=== PATIENT | female | born 1970 | race American Indian/Alaskan Native ===

== ENCOUNTER 2020-11-20 22:18 | Inpatient (IN) | payer MEDICARE ==
[~2020-11-20 22:18] MED LIST: QUEtiapine 200 MG TAB PO SCH
[2020-11-20] MEDS ORDERED: ZIPRASIDONE MESYLATE 20 MG VIAL IM ONE (22:26)
[2020-11-20] MEDS ORDERED: WATER FOR INJ Sterile (PF) 10 ML ONE (22:27)
[2020-11-20] MEDS ORDERED: HALOPERIDOL LACTATE 5 MG/1 ML INJ IM PRN (23:00)
[2020-11-20] MEDS ORDERED: LORazepam 2 MG/ML VIAL IM PRN (23:00)
[2020-11-21 00:05] LABS: Basophils # (Auto) 0.1 K/mm3 (0.0-0.1); Basophils % (Auto) 0.7 % (0.0-1.8); Eosinophils # (Auto) 0.3 K/mm3 (0.0-0.4); Eosinophils % (Auto) 2.9 % (0.0-4.3); Hematocrit 44.7 % (30.3-42.9); Lymphocytes # (Auto) 1.8 K/mm3 (1.2-5.4); Lymphocytes % (Auto) 17.4 % (13.4-35.0); Mean Corpuscular HGB Conc 34 % (30-34); Mean Corpuscular Volume 92 fl (79-97); Monocytes # (Auto) 1.1 K/mm3 (0.0-0.8); Monocytes % (Auto) 10.6 % (0.0-7.3); Platelet Count 311 K/mm3 (140-440); Red Blood Count 4.88 M/mm3 (3.65-5.03); Red Cell Distribution Width 13.2 % (13.2-15.2)
[2020-11-21 04:14] LABS: Alanine Aminotransferase 59 units/L (7-56); Albumin 4.7 g/dL (3.9-5); BUN/Creatinine Ratio 19; Blood Urea Nitrogen 13 mg/dL (7-17); Calcium 10.5 mg/dL (8.4-10.2); Chol/HDL Ratio 1.85 %; HDL Cholesterol 74 mg/dL (40-59); Hemolysis Index 10; LDL Cholesterol,Direct 59 mg/dL (50-130)
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
[2020-11-21] MEDS: DIVALPROEX DR 125 MG TAB PO SCH ×2 (10:48→21:07)
[2020-11-21] MEDS: QUEtiapine 100 MG TAB PO SCH ×2 (10:48→21:07)
[2020-11-21] MEDS: clonazePAM 0.5 MG TAB PO SCH ×2 (10:48→21:07)
[2020-11-21] MEDS ORDERED: MAGNESIUM HYDROXIDE (MOM) ORAL LIQD UDC PO PRN (15:13)
[2020-11-21] MEDS ORDERED: NITROFURANTOIN MONOHYD/M-CRYST 100 MG CAP PO SCH (16:00)
[2020-11-21] MEDS: traZODone 50 MG TAB PO SCH (21:07)
[2020-11-21] MEDS: NITROFURANTOIN MONOHYD/M-CRYST 100 MG CAP PO SCH (23:13)
--- NOTE | 2020-11-22 09:16 | Progress Note ---
Subjective Date of service: 11/22/20 Subjective Comment: per Nurse Note: Received pa in hallway yelling loudly knocking and banging on the nurses station window with multiple complains. Staff redirect pt, she is calm at this time, sitting in the dayroom eating breakfast. Will continue to monitor. Patient seen in the common room pacing and being talkative. Patient reports that she is not doing well. She states having a history of Schizophrenia which she states that she stopped taking medications for 25 years. She reports managing her symptoms with "weed." Patient presents with intrusive behaviors, hyperverbal and sometimes tearful. She denies any current suicidal/ homicidal thoughts and denies hallucinations. REVIEW OF SYSTEMS Constitutional: Negative for weight loss ENT: Negative for stridor Respiratory: Negative for cough or hemoptysis All other systems reviewed and are negative MENTAL STATUS EXAMINATION General Appearance and Behavior: Age appropriate, dressed appropriately, good eye contact Cooperation: Participating/engaged, but intrusive Psychomotor Behavior: Psychomotor normal Mood: tearful Affect and affective range: irritable, labile, tearful Thought Process: illogical Thought Content: Speech: hyperverbal, flight of ideas, increased tone and pace Intellectual Functioning: Average Suicidal Ideation: Denies SI Homicidal Ideation: Denies HI Hallucinations: Denies Delusions: Yes Impulse Control: Impaired Insight and Judgment: Limited insight and judgment Memory: Normal Attention: Normal Orientation: Alert, oriented Assessment and Plan (1)Schizophrenia Current Visit: Yes Status: Acute Treatment Plan Patient admitted for inpatient psychiatric evaluation, medication adjustment and close monitoring The patient's behavior, mood, sleep and appetite will be closely monitored. Patient enrolled in individual and group therapeutic sessions and encouraged to attend. Patient provided with a safe and structured environment. Patient's physical health needs will be addressed by the Hospitalist. Hospitalist Consulted Labs including CBC, CMP, Lipid profile and Hemoglobin A1C levels ordered for baseline reference Social Assessment will be completed and the Assistant will work with patient and family to ensure a suitable and safe disposition Medication adjustment will be made as clinically indicated Continue- Seroquel 100mg po BID Continue- Klonopin 0.25mg po BID x 3 days Continue - Depakote DR 125mg po BID Continue - Trazodone 50mg po qhs Usual Wellness Jain/Preservation: - Continue- Trazodone 50 mg po QHS & 50 mg po QHS PRN between 10 PM & 2 AM for insomnia - Continue -Melatonin 5 mg po QHS to promote circadian rhythm - Continue - [place]-3 for brain health, reduce impulsivity, and as adjunctive treatment for mood disorder, continue upon discharge given overall benefits. - Continue - B1 prophylaxis with 200 mg po for 5 days The patient agreed on the treatment plan, understood the risk, benefit, alternative treatment, potential consequence of no treatment, and gave informed consent. Initial Certification Inpatient psych services: I certify that the inpatient psychiatric services are required for treatment that could reasonably be expected to improve the patient's condition. Estimated days: 7 Legal Status: Voluntary Patient Problems: Current Active Problems Suicidal ideations (Acute) Reaction to Hospitalization: Accepting Medications and Allergies Allergies Allergy/AdvReac Type Severity Reaction Status Date / Time No Known Allergies Allergy Verified 11/21/20 04:09 Home Medications Medication Instructions Recorded Confirmed Last Taken Type Amlodipine Besylate [Norvasc] 5 mg PO DAILY 11/20/20 11/21/20 Unknown History Nitrofurantoin [place]/M-Cryst 100 mg PO Q8HR 11/20/20 11/21/20 Unknown History [Macrobid CAP] Active Meds: Active Medications Clonazepam (Clonazepam 0.5 Mg Tab) 0.25 mg PO BID [facility] Stop: 11/24/20 06:00 Last Admin: 11/21/20 21:07 Dose: 0.25 mg Documented by: Divalproex Sodium (Divalproex Dr 125 Mg Tab) 125 mg PO BID [facility] Last Admin: 11/21/20 21:07 Dose: 125 mg Documented by: Haloperidol Lactate (Haloperidol Lactate 5 Mg/1 Ml Inj) 5 mg IM Q6H PRN PRN Reason: Agitation Last Admin: 11/21/20 13:54 Dose: 5 mg Documented by: Lorazepam (Lorazepam 2 Mg/Ml Vial) 2 mg IM Q6H PRN PRN Reason: Agitation Last Admin: 11/21/20 13:54 Dose: 2 mg Documented by: Magnesium Hydroxide (Magnesium Hydroxide (Mom) Oral Liqd Udc) 30 ml PO QDAY PRN PRN Reason: Constipation Nitrofurantoin Macrocrystals (Nitrofurantoin Monohyd/M-Cryst 100 Mg Cap) 100 mg PO 1000,2200 [facility] Stop: 11/28/20 10:01 Last Admin: 11/21/20 23:13 Dose: 100 mg Documented by: Quetiapine Fumarate (Quetiapine 100 Mg Tab) 100 mg PO BID [facility] Last Admin: 11/21/20 21:07 Dose: 100 mg Documented by: Trazodone HCl (Trazodone 50 Mg Tab) 50 mg PO QHS [facility] Last Admin: 11/21/20 21:07 Dose: 50 mg Documented by: Results - Results Labs/Vitals: Laboratory Last Values WBC 10.6 K/mm3 (4.5-11.0) 11/20/20 23:36 RBC 4.88 M/mm3 (3.65-5.03) 11/20/20 23:36 Hgb 15.0 gm/dl (10.1-14.3) H 11/20/20 23:36 Hct 44.7 % (30.3-42.9) H 11/20/20 23:36 MCV 92 fl (79-97) 11/20/20 23:36 MCH 31 pg (28-32) 11/20/20 23:36 MCHC 34 % (30-34) 11/20/20 23:36 RDW 13.2 % (13.2-15.2) 11/20/20 23:36 Plt Count 311 K/mm3 (140-440) 11/20/20 23:36 Lymph % (Auto) 17.4 % (13.4-35.0) 11/20/20 23:36 [place] % (Auto) 10.6 % (0.0-7.3) H 11/20/20 23:36 Eos % (Auto) 2.9 % (0.0-4.3) 11/20/20 23:36 Baso % (Auto) 0.7 % (0.0-1.8) 11/20/20 23:36 Lymph # (Auto) 1.8 K/mm3 (1.2-5.4) 11/20/20 23:36 [place] # (Auto) 1.1 K/mm3 (0.0-0.8) H 11/20/20 23:36 Eos # (Auto) 0.3 K/mm3 (0.0-0.4) 11/20/20 23:36 Baso # (Auto) 0.1 K/mm3 (0.0-0.1) 11/20/20 23:36 Seg Neutrophils % 68.4 % (40.0-70.0) 11/20/20 23:36 Seg Neutrophils # 7.2 K/mm3 (1.8-7.7) 11/20/20 23:36 Sodium 141 mmol/L (137-145) 11/20/20 23:36 Potassium 4.0 mmol/L (3.6-5.0) 11/20/20 23:36 Chloride 101.2 mmol/L (98-107) 11/20/20 23:36 Carbon Dioxide 25 mmol/L (22-30) 11/20/20 23:36 Anion Gap 19 mmol/L 11/20/20 23:36 BUN 13 mg/dL (7-17) 11/20/20 23:36 Creatinine 0.7 mg/dL (0.6-1.2) 11/20/20 23:36 Estimated GFR > 60 ml/min 11/20/20 23:36 BUN/Creatinine Ratio 19 % 11/20/20 23:36 Glucose 99 mg/dL (65-100) 11/20/20 23:36 POC Glucose 102 mg/dL (70-105) 11/20/20 22:58 Hemoglobin A1c 5.9 % (4-6) 11/20/20 23:36 Calcium 10.5 mg/dL (8.4-10.2) H 11/20/20 23:36 Total Bilirubin 0.20 mg/dL (0.1-1.2) 11/20/20 23:36 AST 46 units/L (5-40) H 11/20/20 23:36 ALT 59 units/L (7-56) H 11/20/20 23:36 Alkaline Phosphatase 152 units/L (35-129) H 11/20/20 23:36 Total Protein 7.0 g/dL (6.3-8.2) 11/20/20 23:36 Albumin 4.7 g/dL (3.9-5) 11/20/20 23:36 Albumin/Globulin Ratio 2.0 % 11/20/20 23:36 Triglycerides 71 mg/dL (2-149) 11/20/20 23:36 Cholesterol 137 mg/dL (50-199) 11/20/20 23:36 LDL Cholesterol Direct 59 mg/dL (50-130) 11/20/20 23:36 HDL Cholesterol 74 mg/dL (40-59) H 11/20/20 23:36 Cholesterol/HDL Ratio 1.85 % 11/20/20 23:36 Last Vital Signs Temp 98.5 F 11/21/20 19:57 Pulse 95 H 11/21/20 19:57 Resp 18 11/21/20 19:57 BP 130/68 11/21/20 19:57 Pulse Ox 96 11/21/20 19:57
[2020-11-22] MEDS: NITROFURANTOIN MONOHYD/M-CRYST 100 MG CAP PO SCH ×2 (09:32→22:01)
[2020-11-22] MEDS: clonazePAM 0.5 MG TAB PO SCH ×2 (09:32→21:40)
[2020-11-22] MEDS: DIVALPROEX DR 125 MG TAB PO SCH ×2 (09:32→21:40)
[2020-11-22] MEDS: QUEtiapine 100 MG TAB PO SCH ×2 (09:33→21:40)
--- NOTE | 2020-11-22 14:27 | Consultation ---
History of Present Illness - Reason for Consult Consult date: 11/22/20 Medical management Requesting physician: ALLI ROSE - History of Present Illness 50-year-old -Citizen Of [place] female with past medical history significant for schizophrenia, hypertension was admitted to [facility] for depression. Patient stated she was not taking her lithium for years, she has been smoking marijuana but did not help her much. Patient feels depressed and was admitted to [facility]. Patient states she had dysuria and frequency but no other complaints. Patient is complaining she has hemorrhoid. REVIEW OF SYSTEMS: GENERAL: no weight change, no fatigue, no fever HEAD: no head ache EYES: no blurry vision, no acute visual loss EARS: no hearing loss, no discharge, no earache NOSE: no stuffiness, no sneezing, no discharge MOUTH, THROAT AND NECK: no bleeding gums, no sore throat, no swollen neck CARDIAC: no palpitations, no dyspnea on exertion, no orthopnea, no PND, no edema, no chest pain RESPIRATORY: no shortness of breath, no wheeze, no cough, no sputum, no he moptysis, no asthma GI: no decreased appetite, no nausea, no vomiting, no dysphagia, no diarrhea, no constipation, no abdominal pain URINARY: No urgency, hematuria, dysuria or frequency. MUSCULOSKELETAL: no muscle weakness, no pain, no joint stiffness NEUROLOGIC: no loss of sensation/numbness, no tingling, no tremors, no weakness/paralysis HEMATOLOGIC: no anemia, no easy bruising SKIN: no rashes ENDOCRINE: no heat/cold intolerance, no polyuria, no polydipsia, no thyroid problems, no diabetes PSYCHIATRIC: no anxiety, no suicidal ideations Past History Past Medical History: hypertension, other (Schizophrenia) Past Surgical History: Other (tubal ligation) Social history: smoking (Quit 2 weeks ago), alcohol abuse (Quit 2 weeks ago). denies: prescription drug abuse Family history: other (No family history of schizophrenia) Medications and Allergies Allergies Allergy/AdvReac Type Severity Reaction Status Date / Time No Known Allergies Allergy Verified 11/21/20 04:09 Home Medications Medication Instructions Recorded Confirmed Last Taken Type Amlodipine Besylate [Norvasc] 5 mg PO DAILY 11/20/20 11/21/20 Unknown History Nitrofurantoin [place]/M-Cryst 100 mg PO Q8HR 11/20/20 11/21/20 Unknown History [Macrobid CAP] Active Meds: Active Medications Clonazepam (Clonazepam 0.5 Mg Tab) 0.25 mg PO BID [facility] Stop: 11/24/20 06:00 Last Admin: 11/22/20 09:32 Dose: 0.25 mg Documented by: Divalproex Sodium (Divalproex Dr 125 Mg Tab) 125 mg PO BID [facility] Last Admin: 11/22/20 09:32 Dose: 125 mg Documented by: Haloperidol Lactate (Haloperidol Lactate 5 Mg/1 Ml Inj) 5 mg IM Q6H PRN PRN Reason: Agitation Last Admin: 11/21/20 13:54 Dose: 5 mg Documented by: Lorazepam (Lorazepam 2 Mg/Ml Vial) 2 mg IM Q6H PRN PRN Reason: Agitation Last Admin: 11/21/20 13:54 Dose: 2 mg Documented by: Magnesium Hydroxide (Magnesium Hydroxide (Mom) Oral Liqd Udc) 30 ml PO QDAY PRN PRN Reason: Constipation Nitrofurantoin Macrocrystals (Nitrofurantoin Monohyd/M-Cryst 100 Mg Cap) 100 mg PO 1000,2200 [facility] Stop: 11/28/20 10:01 Last Admin: 11/22/20 09:32 Dose: 100 mg Documented by: Quetiapine Fumarate (Quetiapine 100 Mg Tab) 100 mg PO BID [facility] Last Admin: 11/22/20 09:33 Dose: 100 mg Documented by: Trazodone HCl (Trazodone 50 Mg Tab) 50 mg PO QHS [facility] Last Admin: 11/21/20 21:07 Dose: 50 mg Documented by: Exam - Physical Exam Narrative exam: Not in cardiopulmonary distress. The patient appeared well nourished and normally developed. Vital signs as documented. Head exam is unremarkable. No scleral icterus . Neck is without jugular venous distension, thyromegaly, or carotid bruits. Lungs are clear to auscultation. Cardiac exam reveals regular rate and Rhythm. Abdominal exam reveals normal bowel sounds, nontender, no organomegaly. Extremities are nonedematous and both femoral and pedal pulses are normal. 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 No focal weakness. - Constitutional Vitals: Temp Pulse Resp BP Pulse Ox 98.6 F 87 18 122/84 99 11/22/20 08:04 11/22/20 08:04 11/22/20 08:04 11/22/20 08:04 11/22/20 08:04 Results - Labs CBC & Chem 7: 11/20/20 23:36 11/20/20 23:36 Assessment and Plan Schizophrenia, major depression -Management as per [facility] psych UTI -Patient has symptoms of UTI -UA ordered -Agree with nitrofurantoin Hypertension -Patient's blood pressure is within normal limit without any medication Thank you for the consult. Please feel free to call me for any questions.
[2020-11-22] MEDS: HYDROCORTISONE 2.5% RECT CREAM 28.35 GM PR PRN ×2 (15:55→21:41)
[2020-11-22] MEDS: traZODone 50 MG TAB PO SCH (21:40)
[2020-11-23] MEDS: QUEtiapine 100 MG TAB PO SCH ×2 (09:21→21:30)
[2020-11-23] MEDS: clonazePAM 0.5 MG TAB PO SCH ×2 (09:21→21:30)
[2020-11-23] MEDS: NITROFURANTOIN MONOHYD/M-CRYST 100 MG CAP PO SCH (09:21)
[2020-11-23] MEDS: DIVALPROEX DR 125 MG TAB PO SCH (09:21)
--- NOTE | 2020-11-23 09:22 | Progress Note ---
Subjective Date of service: 11/23/20 Subjective Comment: Per Nurse Note: pt was restless most of the night, constantly coming to the nursing demanding for one thing or the other, slept for approximately 3hrs, no distress noted, will continue to monitor for safety. Patient was seen today pacing the hallways. Patient reports sleeping good but was a little anxious. Patient continues to present with intrusive behaviors and intermittent loudness and irritability. She reports daughter visiting yesterday which she states was "peaceful." She denies any current suicidal/homicidal ideation and denies AVHs. REVIEW OF SYSTEMS Constitutional: Negative for weight loss ENT: Negative for stridor Respiratory: Negative for cough or hemoptysis All other systems reviewed and are negative MENTAL STATUS EXAMINATION General Appearance and Behavior: Age appropriate, dressed appropriately, good eye contact Cooperation: Participating/engaged, but intrusive Psychomotor Behavior: Psychomotor normal Mood: tearful Affect and affective range: irritable, labile, tearful Thought Process: illogical Thought Content: Speech: hyperverbal, flight of ideas, increased tone and pace Intellectual Functioning: Average Suicidal Ideation: Denies SI Homicidal Ideation: Denies HI Hallucinations: Denies Delusions: Yes Impulse Control: Impaired Insight and Judgment: Limited insight and judgment Memory: Normal Attention: Normal Orientation: Alert, oriented Assessment and Plan (1)Schizophrenia Current Visit: Yes Status: Acute Treatment Plan Patient admitted for inpatient psychiatric evaluation, medication adjustment and close monitoring The patient's behavior, mood, sleep and appetite will be closely monitored. Patient enrolled in individual and group therapeutic sessions and encouraged to attend. Patient provided with a safe and structured environment. Patient's physical health needs will be addressed by the Hospitalist. Hospitalist Consulted Labs including CBC, CMP, Lipid profile and Hemoglobin A1C levels ordered for baseline reference Social Assessment will be completed and the Home Coordinator will work with patient and family to ensure a suitable and safe disposition Medication adjustment will be made as clinically indicated Continue- Seroquel 100mg po BID Continue- Klonopin 0.25mg po BID x 3 days Increase - Depakote DR 250mg po BID Continue - Trazodone 50mg po qhs Usual Wellness Mormonism/Preservation: - Continue- Trazodone 50 mg po QHS & 50 mg po QHS PRN between 10 PM & 2 AM for insomnia - Continue -Melatonin 5 mg po QHS to promote circadian rhythm - Continue - [place]-3 for brain health, reduce impulsivity, and as adjunctive treatment for mood disorder, continue upon discharge given overall benefits. - Continue - B1 prophylaxis with 200 mg po for 5 days The patient agreed on the treatment plan, understood the risk, benefit, alternative treatment, potential consequence of no treatment, and gave informed consent. Initial Certification Inpatient psych services: I certify that the inpatient psychiatric services are required for treatment that could reasonably be expected to improve the patient's condition. Estimated days: 4 Legal Status: Voluntary Patient Problems: Current Active Problems Suicidal ideations (Acute) Reaction to Hospitalization: Accepting Medications and Allergies Allergies Allergy/AdvReac Type Severity Reaction Status Date / Time No Known Allergies Allergy Verified 11/21/20 04:09 Home Medications Medication Instructions Recorded Confirmed Last Taken Type Amlodipine Besylate [Norvasc] 5 mg PO DAILY 11/20/20 11/21/20 Unknown History Nitrofurantoin [place]/M-Cryst 100 mg PO Q8HR 11/20/20 11/21/20 Unknown History [Macrobid CAP] [place] Carbonate 300 mg PO DAILY 11/22/20 11/22/20 Unknown History [place] Carbonate 600 mg PO QHS 11/22/20 11/22/20 Unknown History QUEtiapine [SEROquel] 200 mg PO DAILY 11/22/20 11/22/20 Unknown History Quetiapine Fumarate [SEROquel] 400 mg PO BID 11/22/20 11/22/20 Unknown History Active Meds: Active Medications Clonazepam (Clonazepam 0.5 Mg Tab) 0.25 mg PO BID [facility] Stop: 11/24/20 06:00 Last Admin: 11/22/20 21:40 Dose: 0.25 mg Documented by: Divalproex Sodium (Divalproex Dr 125 Mg Tab) 125 mg PO BID [facility] Last Admin: 11/22/20 21:40 Dose: 125 mg Documented by: Haloperidol Lactate (Haloperidol Lactate 5 Mg/1 Ml Inj) 5 mg IM Q6H PRN PRN Reason: Agitation Last Admin: 11/21/20 13:54 Dose: 5 mg Documented by: Hydrocortisone Acetate (Hydrocortisone 2.5% Rect Cream 28.35 Gm) 1 applic [place] Q8H PRN PRN Reason: Hemorrhoids Last Admin: 11/22/20 21:41 Dose: 1 applic Documented by: Lorazepam (Lorazepam 2 Mg/Ml Vial) 2 mg IM Q6H PRN PRN Reason: Agitation Last Admin: 11/21/20 13:54 Dose: 2 mg Documented by: Magnesium Hydroxide (Magnesium Hydroxide (Mom) Oral Liqd Udc) 30 ml PO QDAY PRN PRN Reason: Constipation Nitrofurantoin Macrocrystals (Nitrofurantoin Monohyd/M-Cryst 100 Mg Cap) 100 mg PO 1000,2200 [facility] Stop: 11/28/20 10:01 Last Admin: 11/22/20 22:01 Dose: 100 mg Documented by: Quetiapine Fumarate (Quetiapine 100 Mg Tab) 100 mg PO BID [facility] Last Admin: 11/22/20 21:40 Dose: 100 mg Documented by: Trazodone HCl (Trazodone 50 Mg Tab) 50 mg PO QHS [facility] Last Admin: 11/22/20 21:40 Dose: 50 mg Documented by: Results - Results Labs/Vitals: Laboratory Last Values WBC 10.6 K/mm3 (4.5-11.0) 11/20/20 23:36 RBC 4.88 M/mm3 (3.65-5.03) 11/20/20 23:36 Hgb 15.0 gm/dl (10.1-14.3) H 11/20/20 23:36 Hct 44.7 % (30.3-42.9) H 11/20/20 23:36 MCV 92 fl (79-97) 11/20/20 23:36 MCH 31 pg (28-32) 11/20/20 23:36 MCHC 34 % (30-34) 11/20/20 23:36 RDW 13.2 % (13.2-15.2) 11/20/20 23:36 Plt Count 311 K/mm3 (140-440) 11/20/20 23:36 Lymph % (Auto) 17.4 % (13.4-35.0) 11/20/20 23:36 [place] % (Auto) 10.6 % (0.0-7.3) H 11/20/20 23:36 Eos % (Auto) 2.9 % (0.0-4.3) 11/20/20 23:36 Baso % (Auto) 0.7 % (0.0-1.8) 11/20/20 23:36 Lymph # (Auto) 1.8 K/mm3 (1.2-5.4) 11/20/20 23:36 [place] # (Auto) 1.1 K/mm3 (0.0-0.8) H 11/20/20 23:36 Eos # (Auto) 0.3 K/mm3 (0.0-0.4) 11/20/20 23:36 Baso # (Auto) 0.1 K/mm3 (0.0-0.1) 11/20/20 23:36 Seg Neutrophils % 68.4 % (40.0-70.0) 11/20/20 23:36 Seg Neutrophils # 7.2 K/mm3 (1.8-7.7) 11/20/20 23:36 Sodium 141 mmol/L (137-145) 11/20/20 23:36 Potassium 4.0 mmol/L (3.6-5.0) 11/20/20 23:36 Chloride 101.2 mmol/L (98-107) 11/20/20 23:36 Carbon Dioxide 25 mmol/L (22-30) 11/20/20 23:36 Anion Gap 19 mmol/L 11/20/20 23:36 BUN 13 mg/dL (7-17) 11/20/20 23:36 Creatinine 0.7 mg/dL (0.6-1.2) 11/20/20 23:36 Estimated GFR > 60 ml/min 11/20/20 23:36 BUN/Creatinine Ratio 19 % 11/20/20 23:36 Glucose 99 mg/dL (65-100) 11/20/20 23:36 POC Glucose 102 mg/dL (70-105) 11/20/20 22:58 Hemoglobin A1c 5.9 % (4-6) 11/20/20 23:36 Calcium 10.5 mg/dL (8.4-10.2) H 11/20/20 23:36 Total Bilirubin 0.20 mg/dL (0.1-1.2) 11/20/20 23:36 AST 46 units/L (5-40) H 11/20/20 23:36 ALT 59 units/L (7-56) H 11/20/20 23:36 Alkaline Phosphatase 152 units/L (35-129) H 11/20/20 23:36 Total Protein 7.0 g/dL (6.3-8.2) 11/20/20 23:36 Albumin 4.7 g/dL (3.9-5) 11/20/20 23:36 Albumin/Globulin Ratio 2.0 % 11/20/20 23:36 Triglycerides 71 mg/dL (2-149) 11/20/20 23:36 Cholesterol 137 mg/dL (50-199) 11/20/20 23:36 LDL Cholesterol Direct 59 mg/dL (50-130) 11/20/20 23:36 HDL Cholesterol 74 mg/dL (40-59) H 11/20/20 23:36 Cholesterol/HDL Ratio 1.85 % 11/20/20 23:36 Last Vital Signs Temp 98.0 F 11/23/20 06:59 Pulse 80 11/23/20 06:59 Resp 16 11/23/20 06:59 BP 118/75 11/23/20 06:59 Pulse Ox 99 11/23/20 06:59
--- NOTE | 2020-11-23 20:06 | Progress Note ---
Assessment and Plan - Patient Problems (1) Schizophrenia Status: Acute Plan to address problem: Continue medical management as per primary team, supportive care. (2) Hypertension Status: Acute Qualifiers: Hypertension type: primary hypertension Qualified Code(s): I10 - Essential (primary) hypertension Plan to address problem: Monitor blood pressure every shift, continue medical management. History Interval history: 50 YO Female with schizophrenia, hypertension admitted to [facility] psych unit for psychiatric stabilization. Patient seen and evaluated in her room. Patient denies fever, chills, chest pain, shortness of breath. No reported nursing events, patient appears comfortable. Hospitalist Physical - Constitutional Vitals: Temp Pulse Resp BP Pulse Ox 98.0 F 80 16 118/75 99 11/23/20 06:59 11/23/20 06:59 11/23/20 06:59 11/23/20 06:59 11/23/20 06:59 General appearance: Present: no acute distress - EENT Eyes: Present: PERRL ENT: hearing intact - Neck Neck: Present: supple - Respiratory Respiratory effort: normal Respiratory: bilateral: CTA - Cardiovascular Rhythm: regular Heart Sounds: Present: S1 & S2 - Extremities Extremities: no ischemia Peripheral Pulses: within normal limits - Abdominal General gastrointestinal: soft, non-tender, non-distended - Integumentary Integumentary: Present: clear, dry - Psychiatric Psychiatric: cooperative - Neurologic Neurologic: CNII-XII intact, moves all extremities, gait normal Results - Labs CBC & Chem 7: 11/20/20 23:36 11/20/20 23:36 Labs: Laboratory Last Values WBC 10.6 K/mm3 (4.5-11.0) 11/20/20 23:36 RBC 4.88 M/mm3 (3.65-5.03) 11/20/20 23:36 Hgb 15.0 gm/dl (10.1-14.3) H 11/20/20 23:36 Hct 44.7 % (30.3-42.9) H 11/20/20 23:36 MCV 92 fl (79-97) 11/20/20 23:36 MCH 31 pg (28-32) 11/20/20 23:36 MCHC 34 % (30-34) 11/20/20 23:36 RDW 13.2 % (13.2-15.2) 11/20/20 23:36 Plt Count 311 K/mm3 (140-440) 11/20/20 23:36 Lymph % (Auto) 17.4 % (13.4-35.0) 11/20/20 23:36 [place] % (Auto) 10.6 % (0.0-7.3) H 11/20/20 23:36 Eos % (Auto) 2.9 % (0.0-4.3) 11/20/20 23:36 Baso % (Auto) 0.7 % (0.0-1.8) 11/20/20 23:36 Lymph # (Auto) 1.8 K/mm3 (1.2-5.4) 11/20/20 23:36 [place] # (Auto) 1.1 K/mm3 (0.0-0.8) H 11/20/20 23:36 Eos # (Auto) 0.3 K/mm3 (0.0-0.4) 11/20/20 23:36 Baso # (Auto) 0.1 K/mm3 (0.0-0.1) 11/20/20 23:36 Seg Neutrophils % 68.4 % (40.0-70.0) 11/20/20 23:36 Seg Neutrophils # 7.2 K/mm3 (1.8-7.7) 11/20/20 23:36 Sodium 141 mmol/L (137-145) 11/20/20 23:36 Potassium 4.0 mmol/L (3.6-5.0) 11/20/20 23:36 Chloride 101.2 mmol/L (98-107) 11/20/20 23:36 Carbon Dioxide 25 mmol/L (22-30) 11/20/20 23:36 Anion Gap 19 mmol/L 11/20/20 23:36 BUN 13 mg/dL (7-17) 11/20/20 23:36 Creatinine 0.7 mg/dL (0.6-1.2) 11/20/20 23:36 Estimated GFR > 60 ml/min 11/20/20 23:36 BUN/Creatinine Ratio 19 % 11/20/20 23:36 Glucose 99 mg/dL (65-100) 11/20/20 23:36 POC Glucose 102 mg/dL (70-105) 11/20/20 22:58 Hemoglobin A1c 5.9 % (4-6) 11/20/20 23:36 Calcium 10.5 mg/dL (8.4-10.2) H 11/20/20 23:36 Total Bilirubin 0.20 mg/dL (0.1-1.2) 11/20/20 23:36 AST 46 units/L (5-40) H 11/20/20 23:36 ALT 59 units/L (7-56) H 11/20/20 23:36 Alkaline Phosphatase 152 units/L (35-129) H 11/20/20 23:36 Total Protein 7.0 g/dL (6.3-8.2) 11/20/20 23:36 Albumin 4.7 g/dL (3.9-5) 11/20/20 23:36 Albumin/Globulin Ratio 2.0 % 11/20/20 23:36 Triglycerides 71 mg/dL (2-149) 11/20/20 23:36 Cholesterol 137 mg/dL (50-199) 11/20/20 23:36 LDL Cholesterol Direct 59 mg/dL (50-130) 11/20/20 23:36 HDL Cholesterol 74 mg/dL (40-59) H 11/20/20 23:36 Cholesterol/HDL Ratio 1.85 % 11/20/20 23:36 [place]/IV: Voiding Method Toilet Active Medications - Current Medications Current Medications: Generic Name Dose Route Start Last Admin Trade Name Freq PRN Reason Stop Dose Admin Clonazepam 0.25 mg 11/21/20 10:00 11/23/20 09:21 Clonazepam 0.5 Mg Tab PO 11/24/20 06:00 0.25 mg BID TAMEKA Administration Divalproex Sodium 250 mg 11/23/20 22:[address] 250 Mg Tab PO BID TAMEKA Haloperidol Lactate 5 mg 11/20/20 23:00 11/21/20 13:54 Haloperidol Lactate 5 Mg/1 Ml Inj IM 5 mg Q6H PRN Administration Agitation Hydrocortisone Acetate 1 applic 11/22/20 14:26 11/22/20 21:41 Hydrocortisone 2.5% Rect Cream 28.35 Gm GA 1 applic Q8H PRN Administration Hemorrhoids Lorazepam 2 mg 11/20/20 23:00 11/21/20 13:54 Lorazepam 2 Mg/Ml Vial IM 2 mg Q6H PRN Administration Agitation Magnesium Hydroxide 30 ml 11/21/20 15:13 Magnesium Hydroxide (Mom) Oral Liqd Udc PO QDAY PRN Constipation Nitrofurantoin Macrocrystals 100 mg 11/21/20 22:00 11/23/20 09:21 Nitrofurantoin Monohyd/M-Cryst 100 Mg Cap PO 11/28/20 10:01 100 mg 1000,2200 TAMEKA Administration Quetiapine Fumarate 100 mg 11/21/20 10:00 11/23/20 09:21 Quetiapine 100 Mg Tab PO 100 mg BID TAMEKA Administration Trazodone HCl 50 mg 11/21/20 22:00 11/22/20 21:40 Trazodone 50 Mg Tab PO 50 mg QHS TAMEKA Administration
[2020-11-23] MEDS: DIVALPROEX DR 250 MG TAB PO SCH (21:30)
[2020-11-23] MEDS: HYDROCORTISONE 2.5% RECT CREAM 28.35 GM PR PRN (21:30)
[2020-11-23] MEDS: traZODone 50 MG TAB PO SCH (21:37)
[2020-11-24] MEDS ORDERED: ACETAMINOPHEN 325 MG TAB PO NR (06:05)
[2020-11-24] MEDS: NITROFURANTOIN MONOHYD/M-CRYST 100 MG CAP PO SCH ×3 (06:09→21:16)
[2020-11-24] MEDS: HYDROCORTISONE 2.5% RECT CREAM 28.35 GM PR PRN ×2 (06:24→21:48)
[2020-11-24] MEDS ORDERED: ACETAMINOPHEN 325 MG TAB PO ONE ×2 (07:00→23:30)
[2020-11-24] MEDS: QUEtiapine 100 MG TAB PO SCH (09:58)
[2020-11-24] MEDS: DIVALPROEX DR 250 MG TAB PO SCH (09:58)
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
[2020-11-24] MEDS ORDERED: DIVALPROEX DR 250 MG TAB PO SCH (11:00)
[2020-11-24] MEDS: QUEtiapine 200 MG TAB PO SCH ×2 (11:18→21:15)
[2020-11-24] MEDS: DIVALPROEX DR 500 MG TAB PO SCH (21:15)
[2020-11-24] MEDS: traZODone 50 MG TAB PO SCH (21:15)
[2020-11-25] MEDS: QUEtiapine 200 MG TAB PO SCH ×2 (09:11→21:42)
[2020-11-25] MEDS: DIVALPROEX DR 500 MG TAB PO SCH ×3 (09:11→21:42)
[2020-11-25] MEDS: NITROFURANTOIN MONOHYD/M-CRYST 100 MG CAP PO SCH ×2 (09:12→21:42)
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
[2020-11-25] MEDS: traZODone 50 MG TAB PO SCH (21:42)
[2020-11-26] MEDS: HYDROCORTISONE 2.5% RECT CREAM 28.35 GM PR PRN (01:21)
--- NOTE | 2020-11-26 08:28 | Progress Note ---
Subjective - Reason for Consult Consult date: 11/26/20 Reason for consult: schizophrenia - Chief Complaint Chief complaint: Per Nurse Note:Received patient at 1900. She is in the activity room interacting with peers. She denies needs. Will continue to monitor patient for safety. Patient was seen in the activity room socializing with peers. Patient continues to be intrusive but calmer. She states she is doing well and that her depakote is working for her. She reports sleep and appetite as good. She denies any significant medication side effects. She denies suicidal/homicidal ideation and denies AVHs. REVIEW OF SYSTEMS Constitutional: Negative for weight loss ENT: Negative for stridor Respiratory: Negative for cough or hemoptysis All other systems reviewed and are negative MENTAL STATUS EXAMINATION General Appearance and Behavior: Age appropriate, dressed appropriately, good eye contact Cooperation: Participating/engaged, but intrusive Psychomotor Behavior: Psychomotor normal Mood: "good" Affect and affective range: labile Thought Process: illogical Thought Content: Speech: hyperverbal, flight of ideas, increased tone and pace Intellectual Functioning: Average Suicidal Ideation: Denies SI Homicidal Ideation: Denies HI Hallucinations: Denies Delusions: Yes Impulse Control: Impaired Insight and Judgment: Limited insight and judgment Memory: Normal Attention: Normal Orientation: Alert, oriented Assessment and Plan (1)Schizophrenia Current Visit: Yes Status: Acute Treatment Plan Patient admitted for inpatient psychiatric evaluation, medication adjustment and close monitoring The patient's behavior, mood, sleep and appetite will be closely monitored. Patient enrolled in individual and group therapeutic sessions and encouraged to attend. Patient provided with a safe and structured environment. Patient's physical health needs will be addressed by the Hospitalist. Hospitalist Consulted Labs including CBC, CMP, Lipid profile and Hemoglobin A1C levels ordered for baseline reference Valproic level 11/27 Social Assessment will be completed and the Eligibility Counselor will work with patient and family to ensure a suitable and safe disposition Medication adjustment will be made as clinically indicated Continue Seroquel 200mg po BID Continue Depakote DR 500mg po TID Usual Wellness Jainism/Preservation: - Continue- Trazodone 50 mg po QHS & 50 mg po QHS PRN between 10 PM & 2 AM for insomnia - Continue -Melatonin 5 mg po QHS to promote circadian rhythm - Continue - [place]-3 for brain health, reduce impulsivity, and as adjunctive treatment for mood disorder, continue upon discharge given overall benefits. - Continue - B1 prophylaxis with 200 mg po for 5 days The patient agreed on the treatment plan, understood the risk, benefit, alternative treatment, potential consequence of no treatment, and gave informed consent. Estimated days: 4 Outpatient upon discharge Case staffed with Dr. Joe Mental Status Exam - Vital signs Last Vital Signs Temp 98.2 F 11/25/20 19:54 Pulse 90 11/25/20 19:54 Resp 18 11/25/20 19:54 BP 119/77 11/25/20 19:54 Pulse Ox 99 11/25/20 19:54
[2020-11-26] MEDS: QUEtiapine 200 MG TAB PO SCH ×2 (10:29→21:15)
[2020-11-26] MEDS: NITROFURANTOIN MONOHYD/M-CRYST 100 MG CAP PO SCH ×2 (10:29→21:15)
[2020-11-26] MEDS: DIVALPROEX DR 500 MG TAB PO SCH ×3 (10:30→21:15)
[2020-11-26] MEDS: traZODone 50 MG TAB PO SCH (21:15)
[2020-11-27] MEDS: HYDROCORTISONE 2.5% RECT CREAM 28.35 GM PR PRN (06:07)
[2020-11-27] MEDS: NITROFURANTOIN MONOHYD/M-CRYST 100 MG CAP PO SCH ×2 (09:16→21:42)
[2020-11-27] MEDS: QUEtiapine 200 MG TAB PO SCH ×2 (09:16→21:42)
[2020-11-27] MEDS: DIVALPROEX DR 500 MG TAB PO SCH ×3 (09:16→21:42)
--- NOTE | 2020-11-27 10:46 | Progress Note ---
Subjective Date of service: 11/27/20 Subjective Comment: patient was seen this morning in the activity room socializing with peers. Patient report mood as " I'm doing marvelous." Patient continues to be talkative stating "my spirit is high, the Seroquel is working for me." Patient reports sleep and appetitie as good. She denies any current suicidal/homicidal ideation and denies AVHs. REVIEW OF SYSTEMS Constitutional: Negative for weight loss ENT: Negative for stridor Respiratory: Negative for cough or hemoptysis All other systems reviewed and are negative MENTAL STATUS EXAMINATION General Appearance and Behavior: Age appropriate, dressed appropriately, good ey e contact Cooperation: Participating/engaged, but intrusive Psychomotor Behavior: Psychomotor normal Mood: "marvelous" Affect and affective range: labile Thought Process: illogical Thought Content: Speech: hyperverbal, flight of ideas, increased tone and pace Intellectual Functioning: Average Suicidal Ideation: Denies SI Homicidal Ideation: Denies HI Hallucinations: Denies Delusions: Yes Impulse Control: Impaired Insight and Judgment: Limited insight and judgment Memory: Normal Attention: Normal Orientation: Alert, oriented Assessment and Plan (1)Schizophrenia Current Visit: Yes Status: Acute Treatment Plan Patient admitted for inpatient psychiatric evaluation, medication adjustment and close monitoring The patient's behavior, mood, sleep and appetite will be closely monitored. Patient enrolled in individual and group therapeutic sessions and encouraged to attend. Patient provided with a safe and structured environment. Patient's physical health needs will be addressed by the Hospitalist. Hospitalist Consulted Labs including CBC, CMP, Lipid profile and Hemoglobin A1C levels ordered for baseline reference Valproic level 11/27- Pending result Social Assessment will be completed and the Entry Level Manufacturing Engineer will work with patient and family to ensure a suitable and safe disposition Medication adjustment will be made as clinically indicated Continue Seroquel 200mg po BID Continue Depakote DR 500mg po TID Usual Wellness Mandaeism/Preservation: - Continue- Trazodone 50 mg po QHS & 50 mg po QHS PRN between 10 PM & 2 AM for insomnia - Continue -Melatonin 5 mg po QHS to promote circadian rhythm - Continue - [place]-3 for brain health, reduce impulsivity, and as adjunctive treatment for mood disorder, continue upon discharge given overall benefits. - Continue - B1 prophylaxis with 200 mg po for 5 days The patient agreed on the treatment plan, understood the risk, benefit, alternative treatment, potential consequence of no treatment, and gave informed consent. Estimated days: 4 Outpatient upon discharge Case staffed with Dr. Joe Medications and Allergies Allergies Allergy/AdvReac Type Severity Reaction Status Date / Time No Known Allergies Allergy Verified 11/21/20 04:09 Home Medications Medication Instructions Recorded Confirmed Last Taken Type Amlodipine Besylate [Norvasc] 5 mg PO DAILY 11/20/20 11/21/20 Unknown History Nitrofurantoin [place]/M-Cryst 100 mg PO Q8HR 11/20/20 11/21/20 Unknown History [Macrobid CAP] [place] Carbonate 300 mg PO DAILY 11/22/20 11/22/20 Unknown History [place] Carbonate 600 mg PO QHS 11/22/20 11/22/20 Unknown History QUEtiapine [SEROquel] 200 mg PO DAILY 11/22/20 11/22/20 Unknown History Quetiapine Fumarate [SEROquel] 400 mg PO BID 11/22/20 11/22/20 Unknown History Active Meds: Active Medications Divalproex Sodium (Divalproex Dr 500 Mg Tab) 500 mg PO TID [place] Last Admin: 11/27/20 09:16 Dose: 500 mg Documented by: Haloperidol Lactate (Haloperidol Lactate 5 Mg/1 Ml Inj) 5 mg IM Q6H PRN PRN Reason: Agitation Last Admin: 11/21/20 13:54 Dose: 5 mg Documented by: Hydrocortisone Acetate (Hydrocortisone 2.5% Rect Cream 28.35 Gm) 1 applic [place] Q8H PRN PRN Reason: Hemorrhoids Last Admin: 11/27/20 06:07 Dose: 1 applic Documented by: Lorazepam (Lorazepam 2 Mg/Ml Vial) 2 mg IM Q6H PRN PRN Reason: Agitation Last Admin: 11/21/20 13:54 Dose: 2 mg Documented by: Magnesium Hydroxide (Magnesium Hydroxide (Mom) Oral Liqd Udc) 30 ml PO QDAY PRN PRN Reason: Constipation Last Admin: 11/24/20 21:51 Dose: 30 ml Documented by: Nitrofurantoin Macrocrystals (Nitrofurantoin Monohyd/M-Cryst 100 Mg Cap) 100 mg PO 1000,2200 [place] Stop: 11/28/20 10:01 Last Admin: 11/27/20 09:16 Dose: 100 mg Documented by: Quetiapine Fumarate (Quetiapine 200 Mg Tab) 200 mg PO BID [facility] Last Admin: 11/27/20 09:16 Dose: 200 mg Documented by: Trazodone HCl (Trazodone 50 Mg Tab) 50 mg PO QHS [facility] Last Admin: 11/26/20 21:15 Dose: 50 mg Documented by: Results - Results Labs/Vitals: Laboratory Last Values WBC 10.6 K/mm3 (4.5-11.0) 11/20/20 23:36 RBC 4.88 M/mm3 (3.65-5.03) 11/20/20 23:36 Hgb 15.0 gm/dl (10.1-14.3) H 11/20/20 23:36 Hct 44.7 % (30.3-42.9) H 11/20/20 23:36 MCV 92 fl (79-97) 11/20/20 23:36 MCH 31 pg (28-32) 11/20/20 23:36 MCHC 34 % (30-34) 11/20/20 23:36 RDW 13.2 % (13.2-15.2) 11/20/20 23:36 Plt Count 311 K/mm3 (140-440) 11/20/20 23:36 Lymph % (Auto) 17.4 % (13.4-35.0) 11/20/20 23:36 [place] % (Auto) 10.6 % (0.0-7.3) H 11/20/20 23:36 Eos % (Auto) 2.9 % (0.0-4.3) 11/20/20 23:36 Baso % (Auto) 0.7 % (0.0-1.8) 11/20/20 23:36 Lymph # (Auto) 1.8 K/mm3 (1.2-5.4) 11/20/20 23:36 [place] # (Auto) 1.1 K/mm3 (0.0-0.8) H 11/20/20 23:36 Eos # (Auto) 0.3 K/mm3 (0.0-0.4) 11/20/20 23:36 Baso # (Auto) 0.1 K/mm3 (0.0-0.1) 11/20/20 23:36 Seg Neutrophils % 68.4 % (40.0-70.0) 11/20/20 23:36 Seg Neutrophils # 7.2 K/mm3 (1.8-7.7) 11/20/20 23:36 Sodium 141 mmol/L (137-145) 11/20/20 23:36 Potassium 4.0 mmol/L (3.6-5.0) 11/20/20 23:36 Chloride 101.2 mmol/L (98-107) 11/20/20 23:36 Carbon Dioxide 25 mmol/L (22-30) 11/20/20 23:36 Anion Gap 19 mmol/L 11/20/20 23:36 BUN 13 mg/dL (7-17) 11/20/20 23:36 Creatinine 0.7 mg/dL (0.6-1.2) 11/20/20 23:36 Estimated GFR > 60 ml/min 11/20/20 23:36 BUN/Creatinine Ratio 19 % 11/20/20 23:36 Glucose 99 mg/dL (65-100) 11/20/20 23:36 POC Glucose 102 mg/dL (70-105) 11/20/20 22:58 Hemoglobin A1c 5.9 % (4-6) 11/20/20 23:36 Calcium 10.5 mg/dL (8.4-10.2) H 11/20/20 23:36 Total Bilirubin 0.20 mg/dL (0.1-1.2) 11/20/20 23:36 AST 46 units/L (5-40) H 11/20/20 23:36 ALT 59 units/L (7-56) H 11/20/20 23:36 Alkaline Phosphatase 152 units/L (35-129) H 11/20/20 23:36 Total Protein 7.0 g/dL (6.3-8.2) 11/20/20 23:36 Albumin 4.7 g/dL (3.9-5) 11/20/20 23:36 Albumin/Globulin Ratio 2.0 % 11/20/20 23:36 Triglycerides 71 mg/dL (2-149) 11/20/20 23:36 Cholesterol 137 mg/dL (50-199) 11/20/20 23:36 LDL Cholesterol Direct 59 mg/dL (50-130) 11/20/20 23:36 HDL Cholesterol 74 mg/dL (40-59) H 11/20/20 23:36 Cholesterol/HDL Ratio 1.85 % 11/20/20 23:36 Last Vital Signs Temp 98.2 F 11/27/20 07:25 Pulse 79 11/27/20 07:25 Resp 18 11/27/20 07:25 BP 108/67 11/27/20 07:25 Pulse Ox 100 11/27/20 07:25
[2020-11-27] MEDS: traZODone 50 MG TAB PO SCH (21:42)
--- NOTE | 2020-11-28 08:57 | Progress Note ---
Subjective Date of service: 11/28/20 Subjective Comment: Per Nurse Note: Last evening the patient presents as calm. Her thoughts are clearer. Her interactions were appropriate. She denies si/hi/ah/vh. Her appetite is good and she is medication compliant. She discussed wanting to go home today. This medical writer encouraged her to discuss discharge date with her provider. Overnight the patient rested but woke up several times coming to the nurses desk asking for multiple things. She was assisted when possible and redirected to bed/sleep. She continues to present as "fighting" sleep. She slept 2 hours. Will continue to monitor patient for safety. I interviewed the patient this morning. Medical records reviewed and patient's progress was discussed with unit staff. the patient is still talkative but lucid. Patient reports doing "wonderful. " She is focused on discharge.Patient states " I need to go home so I can take care of my grand children; I have a 5 bedroom house." Appetite is good. Sleep last night was good. Patient denies current SI/HI and denies AVHs. REVIEW OF SYSTEMS Constitutional: Negative for weight loss ENT: Negative for stridor Respiratory: Negative for cough or hemoptysis All other systems reviewed and are negative MENTAL STATUS EXAMINATION General Appearance and Behavior: Age appropriate, dressed appropriately, good eye contact Cooperation: Participating/engaged, but intrusive Psychomotor Behavior: Psychomotor normal Mood: "wonderful" Affect and affective range: labile Thought Process: illogical Thought Content: obsessions Speech: hyperverbal Intellectual Functioning: Average Suicidal Ideation: Denies SI Homicidal Ideation: Denies HI Hallucinations: Denies Delusions: No Impulse Control: Impaired Insight and Judgment: Limited insight and judgment Memory: Normal Attention: Normal Orientation: Alert, oriented Assessment and Plan (1)Schizophrenia Current Visit: Yes Status: Acute Treatment Plan Patient admitted for inpatient psychiatric evaluation, medication adjustment and close monitoring The patient's behavior, mood, sleep and appetite will be closely monitored. Patient enrolled in individual and group therapeutic sessions and encouraged to attend. Patient provided with a safe and structured environment. Patient's physical health needs will be addressed by the Hospitalist. Hospitalist Consulted Labs including CBC, CMP, Lipid profile and Hemoglobin A1C levels ordered for baseline reference Valproic level 11/27- 105.3 Social Assessment will be completed and the Clinical Counselor will work with patient and family to ensure a suitable and safe disposition Medication adjustment will be made as clinically indicated Continue Seroquel 200mg po BID Decrease to Depakote DR 500mg po BID Usual Wellness [facility]/Preservation: - Continue- Trazodone 50 mg po QHS & 50 mg po QHS PRN between 10 PM & 2 AM for insomnia - Continue -Melatonin 5 mg po QHS to promote circadian rhythm - Continue - [place]-3 for brain health, reduce impulsivity, and as adjunctive treatment for mood disorder, continue upon discharge given overall benefits. - Continue - B1 prophylaxis with 200 mg po for 5 days The patient agreed on the treatment plan, understood the risk, benefit, alternative treatment, potential consequence of no treatment, and gave informed consent. Estimated days: 4 Medications and Allergies Allergies Allergy/AdvReac Type Severity Reaction Status Date / Time No Known Allergies Allergy Verified 11/21/20 04:09 Home Medications Medication Instructions Recorded Confirmed Last Taken Type Amlodipine Besylate [Norvasc] 5 mg PO DAILY 11/20/20 11/21/20 Unknown History Nitrofurantoin [place]/M-Cryst 100 mg PO Q8HR 11/20/20 11/21/20 Unknown History [Macrobid CAP] [place] Carbonate 300 mg PO DAILY 11/22/20 11/22/20 Unknown History [place] Carbonate 600 mg PO QHS 11/22/20 11/22/20 Unknown History QUEtiapine [SEROquel] 200 mg PO DAILY 11/22/20 11/22/20 Unknown History Quetiapine Fumarate [SEROquel] 400 mg PO BID 11/22/20 11/22/20 Unknown History Active Meds: Active Medications Divalproex Sodium (Divalproex Dr 500 Mg Tab) 500 mg PO TID [facility] Last Admin: 11/27/20 21:42 Dose: 500 mg Documented by: Haloperidol Lactate (Haloperidol Lactate 5 Mg/1 Ml Inj) 5 mg IM Q6H PRN PRN Reason: Agitation Last Admin: 11/21/20 13:54 Dose: 5 mg Documented by: Hydrocortisone Acetate (Hydrocortisone 2.5% Rect Cream 28.35 Gm) 1 applic [place] Q8H PRN PRN Reason: Hemorrhoids Last Admin: 11/27/20 06:07 Dose: 1 applic Documented by: Lorazepam (Lorazepam 2 Mg/Ml Vial) 2 mg IM Q6H PRN PRN Reason: Agitation Last Admin: 11/21/20 13:54 Dose: 2 mg Documented by: Magnesium Hydroxide (Magnesium Hydroxide (Mom) Oral Liqd Udc) 30 ml PO QDAY PRN PRN Reason: Constipation Last Admin: 11/24/20 21:51 Dose: 30 ml Documented by: Nitrofurantoin Macrocrystals (Nitrofurantoin Monohyd/M-Cryst 100 Mg Cap) 100 mg PO 1000,2200 [facility] Stop: 11/28/20 10:01 Last Admin: 11/27/20 21:42 Dose: 100 mg Documented by: Quetiapine Fumarate (Quetiapine 200 Mg Tab) 200 mg PO BID [facility] Last Admin: 11/27/20 21:42 Dose: 200 mg Documented by: Trazodone HCl (Trazodone 50 Mg Tab) 50 mg PO QHS [facility] Last Admin: 11/27/20 21:42 Dose: 50 mg Documented by: Results - Results Labs/Vitals: Laboratory Last Values WBC 10.6 K/mm3 (4.5-11.0) 11/20/20 23:36 RBC 4.88 M/mm3 (3.65-5.03) 11/20/20 23:36 Hgb 15.0 gm/dl (10.1-14.3) H 11/20/20 23:36 Hct 44.7 % (30.3-42.9) H 11/20/20 23:36 MCV 92 fl (79-97) 11/20/20 23:36 MCH 31 pg (28-32) 11/20/20 23:36 MCHC 34 % (30-34) 11/20/20 23:36 RDW 13.2 % (13.2-15.2) 11/20/20 23:36 Plt Count 311 K/mm3 (140-440) 11/20/20 23:36 Lymph % (Auto) 17.4 % (13.4-35.0) 11/20/20 23:36 [place] % (Auto) 10.6 % (0.0-7.3) H 11/20/20 23:36 Eos % (Auto) 2.9 % (0.0-4.3) 11/20/20 23:36 Baso % (Auto) 0.7 % (0.0-1.8) 11/20/20 23:36 Lymph # (Auto) 1.8 K/mm3 (1.2-5.4) 11/20/20 23:36 [place] # (Auto) 1.1 K/mm3 (0.0-0.8) H 11/20/20 23:36 Eos # (Auto) 0.3 K/mm3 (0.0-0.4) 11/20/20 23:36 Baso # (Auto) 0.1 K/mm3 (0.0-0.1) 11/20/20 23:36 Seg Neutrophils % 68.4 % (40.0-70.0) 11/20/20 23:36 Seg Neutrophils # 7.2 K/mm3 (1.8-7.7) 11/20/20 23:36 Sodium 141 mmol/L (137-145) 11/20/20 23:36 Potassium 4.0 mmol/L (3.6-5.0) 11/20/20 23:36 Chloride 101.2 mmol/L (98-107) 11/20/20 23:36 Carbon Dioxide 25 mmol/L (22-30) 11/20/20 23:36 Anion Gap 19 mmol/L 11/20/20 23:36 BUN 13 mg/dL (7-17) 11/20/20 23:36 Creatinine 0.7 mg/dL (0.6-1.2) 11/20/20 23:36 Estimated GFR > 60 ml/min 11/20/20 23:36 BUN/Creatinine Ratio 19 % 11/20/20 23:36 Glucose 99 mg/dL (65-100) 11/20/20 23:36 POC Glucose 102 mg/dL (70-105) 11/20/20 22:58 Hemoglobin A1c 5.9 % (4-6) 11/20/20 23:36 Calcium 10.5 mg/dL (8.4-10.2) H 11/20/20 23:36 Total Bilirubin 0.20 mg/dL (0.1-1.2) 11/20/20 23:36 AST 46 units/L (5-40) H 11/20/20 23:36 ALT 59 units/L (7-56) H 11/20/20 23:36 Alkaline Phosphatase 152 units/L (35-129) H 11/20/20 23:36 Total Protein 7.0 g/dL (6.3-8.2) 11/20/20 23:36 Albumin 4.7 g/dL (3.9-5) 11/20/20 23:36 Albumin/Globulin Ratio 2.0 % 11/20/20 23:36 Triglycerides 71 mg/dL (2-149) 11/20/20 23:36 Cholesterol 137 mg/dL (50-199) 11/20/20 23:36 LDL Cholesterol Direct 59 mg/dL (50-130) 11/20/20 23:36 HDL Cholesterol 74 mg/dL (40-59) H 11/20/20 23:36 Cholesterol/HDL Ratio 1.85 % 11/20/20 23:36 Valproic Acid 105.3 ug/mL (50-100) H 11/27/20 11:15 Last Vital Signs Temp 97.9 F 11/28/20 06:24 Pulse 74 11/28/20 06:24 Resp 16 11/28/20 06:24 BP 103/54 11/28/20 06:24 Pulse Ox 97 11/28/20 06:24
[2020-11-28] MEDS: NITROFURANTOIN MONOHYD/M-CRYST 100 MG CAP PO SCH (09:10)
[2020-11-28] MEDS: QUEtiapine 200 MG TAB PO SCH ×2 (09:10→21:16)
[2020-11-28] MEDS: DIVALPROEX DR 500 MG TAB PO SCH ×2 (09:10→21:16)
[2020-11-28] MEDS: traZODone 50 MG TAB PO SCH (21:16)
[2020-11-29 08:17] VITALS: BP 127/54
--- NOTE | 2020-11-29 08:49 | Progress Note ---
Subjective Date of service: 11/29/20 Subjective Comment: Per Nurse Note: Last evening the patient was calm and cooperative. She had appropriate interactions with others. She denies si/hi/ah/vh. Patient has a good appetite and is medication compliant. She is focused on wanting to go home tomorrow. She stated she felt better than she had in a long time. Overnight the patient rested quietly. She was awake and up for about an hour between 2am and 3am. She came to the nurses desk asking if we had something for her dry lips. She returned to bed but it took her awhile to get back to sleep. She slept at least 6 hours. Will continue to monitor patient for safety. I interviewed the patient this morning. Medical records reviewed and patient's progress was discussed with unit staff. The patient was seen socializing with peers in the activity room. Patient states she is doing well, " I feel normal." She is focused on discharge. Patient reports sleep and appetite as good. Patient denies current SI/HI and denies AVHs. REVIEW OF SYSTEMS Constitutional: Negative for weight loss ENT: Negative for stridor Respiratory: Negative for cough or hemoptysis All other systems reviewed and are negative MENTAL STATUS EXAMINATION General Appearance and Behavior: Age appropriate, dressed appropriately, good eye contact Cooperation: Participating/engaged, but intrusive Psychomotor Behavior: Psychomotor normal Mood: "doing well" Affect and affective range: labile Thought Process: illogical Thought Content: obsessions Speech: hyperverbal Intellectual Functioning: Average Suicidal Ideation: Denies SI Homicidal Ideation: Denies HI Hallucinations: Denies Delusions: No Impulse Control: Impaired Insight and Judgment: Limited insight and judgment Memory: Normal Attention: Normal Orientation: Alert, oriented Assessment and Plan (1)Schizophrenia Current Visit: Yes Status: Acute Treatment Plan Patient admitted for inpatient psychiatric evaluation, medication adjustment and close monitoring The patient's behavior, mood, sleep and appetite will be closely monitored. Patient enrolled in individual and group therapeutic sessions and encouraged to attend. Patient provided with a safe and structured environment. Patient's physical health needs will be addressed by the Hospitalist. Hospitalist Consulted Labs including CBC, CMP, Lipid profile and Hemoglobin A1C levels ordered for baseline reference Valproic level 11/27- 105.3 Social Assessment will be completed and the Quarrying Specialist will work with patient and family to ensure a suitable and safe disposition Medication adjustment will be made as clinically indicated Continue Seroquel 200mg po BID Continue Depakote DR 500mg po BID Usual Wellness [facility]/Preservation: - Continue- Trazodone 50 mg po QHS & 50 mg po QHS PRN between 10 PM & 2 AM for insomnia - Continue -Melatonin 5 mg po QHS to promote circadian rhythm - Continue - [place]-3 for brain health, reduce impulsivity, and as adjunctive treatment for mood disorder, continue upon discharge given overall benefits. - Continue - B1 prophylaxis with 200 mg po for 5 days The patient agreed on the treatment plan, understood the risk, benefit, alternative treatment, potential consequence of no treatment, and gave informed consent. Estimated days: 4 Medications and Allergies Allergies Allergy/AdvReac Type Severity Reaction Status Date / Time No Known Allergies Allergy Verified 11/21/20 04:09 Home Medications Medication Instructions Recorded Confirmed Last Taken Type Amlodipine Besylate [Norvasc] 5 mg PO DAILY 11/20/20 11/21/20 Unknown History Nitrofurantoin [place]/M-Cryst 100 mg PO Q8HR 11/20/20 11/21/20 Unknown History [Macrobid CAP] [place] Carbonate 300 mg PO DAILY 11/22/20 11/22/20 Unknown History [place] Carbonate 600 mg PO QHS 11/22/20 11/22/20 Unknown History QUEtiapine [SEROquel] 200 mg PO DAILY 11/22/20 11/22/20 Unknown History Quetiapine Fumarate [SEROquel] 400 mg PO BID 11/22/20 11/22/20 Unknown History Active Meds: Active Medications Divalproex Sodium (Divalproex Dr 500 Mg Tab) 500 mg PO BID [facility] Last Admin: 11/28/20 21:16 Dose: 500 mg Documented by: Haloperidol Lactate (Haloperidol Lactate 5 Mg/1 Ml Inj) 5 mg IM Q6H PRN PRN Reason: Agitation Last Admin: 11/21/20 13:54 Dose: 5 mg Documented by: Hydrocortisone Acetate (Hydrocortisone 2.5% Rect Cream 28.35 Gm) 1 applic [place] Q8H PRN PRN Reason: Hemorrhoids Last Admin: 11/27/20 06:07 Dose: 1 applic Documented by: Lorazepam (Lorazepam 2 Mg/Ml Vial) 2 mg IM Q6H PRN PRN Reason: Agitation Last Admin: 11/21/20 13:54 Dose: 2 mg Documented by: Magnesium Hydroxide (Magnesium Hydroxide (Mom) Oral Liqd Udc) 30 ml PO QDAY PRN PRN Reason: Constipation Last Admin: 11/24/20 21:51 Dose: 30 ml Documented by: Quetiapine Fumarate (Quetiapine 200 Mg Tab) 200 mg PO BID [facility] Last Admin: 11/28/20 21:16 Dose: 200 mg Documented by: Trazodone HCl (Trazodone 50 Mg Tab) 50 mg PO QHS [facility] Last Admin: 11/28/20 21:16 Dose: 50 mg Documented by: Results - Results Labs/Vitals: Laboratory Last Values WBC 10.6 K/mm3 (4.5-11.0) 11/20/20 23:36 RBC 4.88 M/mm3 (3.65-5.03) 11/20/20 23:36 Hgb 15.0 gm/dl (10.1-14.3) H 11/20/20 23:36 Hct 44.7 % (30.3-42.9) H 11/20/20 23:36 MCV 92 fl (79-97) 11/20/20 23:36 MCH 31 pg (28-32) 11/20/20 23:36 MCHC 34 % (30-34) 11/20/20 23:36 RDW 13.2 % (13.2-15.2) 11/20/20 23:36 Plt Count 311 K/mm3 (140-440) 11/20/20 23:36 Lymph % (Auto) 17.4 % (13.4-35.0) 11/20/20 23:36 [place] % (Auto) 10.6 % (0.0-7.3) H 11/20/20 23:36 Eos % (Auto) 2.9 % (0.0-4.3) 11/20/20 23:36 Baso % (Auto) 0.7 % (0.0-1.8) 11/20/20 23:36 Lymph # (Auto) 1.8 K/mm3 (1.2-5.4) 11/20/20 23:36 [place] # (Auto) 1.1 K/mm3 (0.0-0.8) H 11/20/20 23:36 Eos # (Auto) 0.3 K/mm3 (0.0-0.4) 11/20/20 23:36 Baso # (Auto) 0.1 K/mm3 (0.0-0.1) 11/20/20 23:36 Seg Neutrophils % 68.4 % (40.0-70.0) 11/20/20 23:36 Seg Neutrophils # 7.2 K/mm3 (1.8-7.7) 11/20/20 23:36 Sodium 141 mmol/L (137-145) 11/20/20 23:36 Potassium 4.0 mmol/L (3.6-5.0) 11/20/20 23:36 Chloride 101.2 mmol/L (98-107) 11/20/20 23:36 Carbon Dioxide 25 mmol/L (22-30) 11/20/20 23:36 Anion Gap 19 mmol/L 11/20/20 23:36 BUN 13 mg/dL (7-17) 11/20/20 23:36 Creatinine 0.7 mg/dL (0.6-1.2) 11/20/20 23:36 Estimated GFR > 60 ml/min 11/20/20 23:36 BUN/Creatinine Ratio 19 % 11/20/20 23:36 Glucose 99 mg/dL (65-100) 11/20/20 23:36 POC Glucose 102 mg/dL (70-105) 11/20/20 22:58 Hemoglobin A1c 5.9 % (4-6) 11/20/20 23:36 Calcium 10.5 mg/dL (8.4-10.2) H 11/20/20 23:36 Total Bilirubin 0.20 mg/dL (0.1-1.2) 11/20/20 23:36 AST 46 units/L (5-40) H 11/20/20 23:36 ALT 59 units/L (7-56) H 11/20/20 23:36 Alkaline Phosphatase 152 units/L (35-129) H 11/20/20 23:36 Total Protein 7.0 g/dL (6.3-8.2) 11/20/20 23:36 Albumin 4.7 g/dL (3.9-5) 11/20/20 23:36 Albumin/Globulin Ratio 2.0 % 11/20/20 23:36 Triglycerides 71 mg/dL (2-149) 11/20/20 23:36 Cholesterol 137 mg/dL (50-199) 11/20/20 23:36 LDL Cholesterol Direct 59 mg/dL (50-130) 11/20/20 23:36 HDL Cholesterol 74 mg/dL (40-59) H 11/20/20 23:36 Cholesterol/HDL Ratio 1.85 % 11/20/20 23:36 Valproic Acid 105.3 ug/mL (50-100) H 11/27/20 11:15 Last Vital Signs Temp 98.3 F 11/29/20 07:27 Pulse 79 11/29/20 07:27 Resp 18 11/29/20 07:27 BP 127/54 11/29/20 07:27 Pulse Ox 100 11/29/20 07:27
--- NOTE | 2020-11-29 10:23 | Discharge Summary ---
Providers - Providers Date of Admission: 11/20/20 22:18 Date of discharge: 11/29/20 Attending physician: KEHINDE MEAD MD 11/20/20 22:54 Consult to Physician [CONS] Routine Comment: Consulting Provider: JOEY DOTY Physician Instructions: Reason For Exam: Medical management Primary care physician: [facility], [place] Hospitalization Hospital course: The patient was provided inpatient psychiatric treatment with safe and supportive environment, group/individual therapy, psychiatric medication, medication adjustment, adverse effect monitor, medical evaluation, medical treatment, social service assessment, social support meeting, placement assessment and psycho-education. The patients mood, cognition, behavior, motivation, compliance to treatment and appreciation on family/social support are improved and stabilized. At the time of discharge, the patient had no suicidal ideas, no homicidal ideas, no aggressive thoughts, no endangering b ehavior and no debilitating adverse effects. The patient agreed on the treatment plan, understood the risk, benefit, alternative treatment, potential consequence of no treatment, and gave informed consent. Disposition: DC-01 TO HOME OR SELFCARE Allergies/Adverse Reactions: Allergies No Known Allergies Allergy (Verified 11/21/20 04:09) Vital Signs: Last Vital Signs Temp 98.3 F 11/29/20 07:27 Pulse 79 11/29/20 07:27 Resp 18 11/29/20 07:27 BP 127/54 11/29/20 07:27 Pulse Ox 100 11/29/20 07:27 Last Lab: Laboratory Last Values WBC 10.6 K/mm3 (4.5-11.0) 11/20/20 23:36 RBC 4.88 M/mm3 (3.65-5.03) 11/20/20 23:36 Hgb 15.0 gm/dl (10.1-14.3) H 11/20/20 23:36 Hct 44.7 % (30.3-42.9) H 11/20/20 23:36 MCV 92 fl (79-97) 11/20/20 23:36 MCH 31 pg (28-32) 11/20/20 23:36 MCHC 34 % (30-34) 11/20/20 23:36 RDW 13.2 % (13.2-15.2) 11/20/20 23:36 Plt Count 311 K/mm3 (140-440) 11/20/20 23:36 Lymph % (Auto) 17.4 % (13.4-35.0) 11/20/20 23:36 [place] % (Auto) 10.6 % (0.0-7.3) H 11/20/20 23:36 Eos % (Auto) 2.9 % (0.0-4.3) 11/20/20 23:36 Baso % (Auto) 0.7 % (0.0-1.8) 11/20/20 23:36 Lymph # (Auto) 1.8 K/mm3 (1.2-5.4) 11/20/20 23:36 [place] # (Auto) 1.1 K/mm3 (0.0-0.8) H 11/20/20 23:36 Eos # (Auto) 0.3 K/mm3 (0.0-0.4) 11/20/20 23:36 Baso # (Auto) 0.1 K/mm3 (0.0-0.1) 11/20/20 23:36 Seg Neutrophils % 68.4 % (40.0-70.0) 11/20/20 23:36 Seg Neutrophils # 7.2 K/mm3 (1.8-7.7) 11/20/20 23:36 Sodium 141 mmol/L (137-145) 11/20/20 23:36 Potassium 4.0 mmol/L (3.6-5.0) 11/20/20 23:36 Chloride 101.2 mmol/L (98-107) 11/20/20 23:36 Carbon Dioxide 25 mmol/L (22-30) 11/20/20 23:36 Anion Gap 19 mmol/L 11/20/20 23:36 BUN 13 mg/dL (7-17) 11/20/20 23:36 Creatinine 0.7 mg/dL (0.6-1.2) 11/20/20 23:36 Estimated GFR > 60 ml/min 11/20/20 23:36 BUN/Creatinine Ratio 19 % 11/20/20 23:36 Glucose 99 mg/dL (65-100) 11/20/20 23:36 POC Glucose 102 mg/dL (70-105) 11/20/20 22:58 Hemoglobin A1c 5.9 % (4-6) 11/20/20 23:36 Calcium 10.5 mg/dL (8.4-10.2) H 11/20/20 23:36 Total Bilirubin 0.20 mg/dL (0.1-1.2) 11/20/20 23:36 AST 46 units/L (5-40) H 11/20/20 23:36 ALT 59 units/L (7-56) H 11/20/20 23:36 Alkaline Phosphatase 152 units/L (35-129) H 11/20/20 23:36 Total Protein 7.0 g/dL (6.3-8.2) 11/20/20 23:36 Albumin 4.7 g/dL (3.9-5) 11/20/20 23:36 Albumin/Globulin Ratio 2.0 % 11/20/20 23:36 Triglycerides 71 mg/dL (2-149) 11/20/20 23:36 Cholesterol 137 mg/dL (50-199) 11/20/20 23:36 LDL Cholesterol Direct 59 mg/dL (50-130) 11/20/20 23:36 HDL Cholesterol 74 mg/dL (40-59) H 11/20/20 23:36 Cholesterol/HDL Ratio 1.85 % 11/20/20 23:36 Valproic Acid 105.3 ug/mL (50-100) H 11/27/20 11:15 Core Measure Documentation - Palliative Care Palliative Care/ Comfort Measures: Not Applicable - Core Measures Any of the following diagnoses?: none (.) Exam - Constitutional Vitals: Temp Pulse Resp BP Pulse Ox 98.3 F 79 18 127/54 100 11/29/20 07:27 11/29/20 07:27 11/29/20 07:27 11/29/20 07:27 11/29/20 07:27 General appearance: Present: no acute distress Plan Care Plan Goals: Maintain good and stable mental health. Plan of Treatment: The patient understands that if suicidal ideas, homicidal ideas, or any endangering thoughts arise, the patient should immediately seek for emergent assistance including but not limited to crisis hot line and emergency room. Follow up with outpatient Psychiatrist and PCP within 7 - 14 days of discharge. OR for Severe Dementia patient: The patient should be compliant with medications, not to use drugs and not to drink alcohol. The SNF understands that if suicidal ideas, homicidal ideas, or any endangering thoughts/behavior arise, they should immediately seek for emergent assistance including but not limited to crisis hot line and emergency room. Follow up with outpatient Psychiatrist and PCP within 7 - 14 days of discharge. Follow up with: FRANCA SMITH MD [Primary Care Provider] - 7 Days Prescriptions: RX: traZODone [Desyrel] 50 mg PO QHS 30 Days #30 tablet RX: Divalproex Dr [Depakote Dr] 500 mg PO BID 30 Days #60 tablet RX: QUEtiapine [SEROquel] 200 mg PO BID 30 Days #60 tablet Pending Studies None
[2020-11-29] MEDS: QUEtiapine 200 MG TAB PO SCH (10:37)
[2020-11-29] MEDS: DIVALPROEX DR 500 MG TAB PO SCH (10:37)
== END 2020-11-29 13:15 | disposition home or self-care (01) | DRG 885 ==
LOC: 5A 22:18
PROVIDERS: ADMIT Psychiatry & Neurology Psychiatry; ATTEND Psychiatry & Neurology Psychiatry
DX: F20.9 Schizophrenia, unspecified (principal); N39.0 Urinary tract infection, site not specified; I10 Essential (primary) hypertension; F32.9 Major depressive disorder, single episode, unspecified; Z87.891 Personal history of nicotine dependence
CPT/HCPCS: 36415; 80048; 80053; 80061; 80164; 80307; 80320; 81001; 82962; 83036; 85025; 87076; 87086; 87186; 96372; G0378; G0480; J1630; J2060; J3486; U0003